=== PATIENT | female | born 1985 | race Hispanic/Latino ===

== ENCOUNTER 2018-12-19 18:45 | Emergency (ER) | payer OTHER ==
[2018-12-19 19:12] LABS: #Basophils 0.1 thou/uL (0.0-0.2); #Eosinphils 0.3 thou/uL (0.0-0.7); #Monocytes 0.6 thou/uL (0.11-0.59); #Neutrophils 6.1 thou/uL (1.40-6.50); %Basophils 0.6 % (0.0-1.0); %Eosinophils 2.9 % (0.0-10.0); %Lymphocytes 29.4 % (21.0-51.0); %Monocytes 6.4 % (0.0-10.0); %Neutrophils 60.8 % (42.0-75.0); Hemoglobin 11.1 g/dL (12.0-16.0); Mean Corpuscular HGB CONC 32.8 g/dL (32.0-36.0); Mean Corpuscular Hemoglobin 29.5 pg (27.0-31.0); Mean Corpuscular Volume 89.7 fL (78.0-98.0); Platelet Count 397 thou/uL (130-400); RBC Distribution Width 12.3 % (11.5-14.5); Red Blood Cell (RBC) Count 3.76 mill/uL (4.20-5.40); White Blood Cell (WBC) Count 10.1 thou/uL (4.8-10.8)
--- NOTE | 2018-12-19 20:10 | ULT ---
Limited obstetrical ultrasound: 12/19/2018 COMPARISON: None HISTORY: female with bleeding TECHNIQUE: Multiplanar grayscale sonographic imaging of the gravid uterus obtained. FINDINGS: Cervical length is approximately 4.9 cm. The placenta is located anteriorly. A single intra uterine gestation is present. heart rate is 150 bpm. presentation is vertex. The umbilical cord insertion, kidneys, stomach, spine, four-chamber heart view, urinary bladder, and imaged brain parenchyma unremarkable. Posterior fossa, nose/lips, and umbilical cord not optimally assessed on this examination. At the left superior placental margin there is a small hypoechoic area measuring approximately 2.4 cm x 0.5 cm x 1.3 cm. This could represent a small marginal hemorrhage or a small placental salas. biometry: BPD 4.4 cm 19 weeks 1 day HC 16.4 cm 19 weeks 1 day Abdominal circumference 15.3 cm 20 weeks 3 days Femur length 3.2 cm 19 weeks 6 days Average age based on ultrasound is 19 weeks 5 days. Estimated date of delivery is 05/10/2019. Estimated weight is 331 g +/- 49 g IMPRESSION: Single live intrauterine gestation as detailed above. Questionable very small hemorrhage at the superior left lateral margin of the placenta as detailed above.
== END 2018-12-19 20:25 | disposition home or self-care (01) ==
LOC: ERS 18:45
DX: O20.9 Hemorrhage in early pregnancy, unspecified (principal); Z3A.18 18 weeks gestation of pregnancy
CPT/HCPCS: 36415; 76815; 85025; 86900; 86901

== ENCOUNTER 2019-05-16 00:28 | Day surgery (SDC) | payer OTHER ==
[2019-05-16 00:56] VITALS: BP 109/62; TEMP 98.7; BMI 36.1
[2019-05-16] MEDS ORDERED: hydrALAZINE 20 MG/ML VIAL SLOW IVP PRN (03:27)
--- NOTE | 2019-05-16 03:30 | PDOC.LDHP ---
Labor and Delivery H&P Chief complaint: contractions HPI: 33 y/o at 40w0d, patient of Dr. Sena, presents with ctx q 5 mins since 10pm. Denies heavy VB, LOF, or decreased FM. ROS neg for HEENT, cv, pulm, gi, gu, neuro, psych, skin, musculoskeletal or constitutional symptoms other than mentioned above. OB History Details: 1 prior term Current complications: none Past Medical History: None Current medications: pre- vitamins Previous surgical history: other (wisdom teeth) Allergies/Adverse Reactions: Allergies Allergy/AdvReac Type Severity Reaction Status Date / Time No Known Allergies Allergy Unverified 05/16/19 00:50 Social history: none - Physical Exam Vital signs reviewed and normal: yes General: NAD, resting Lungs: nonlabored breathing Abdomen: gravid Extremeties: no edema FHT: category 1 (150s, mod variability, + accels, no decels) [place] contractions every: 4-5 mins - Vaginal Exam cm dilated: 3 (unchanged after 2 hours) Effacement: 75% Station: -2 - Assessment 33 y/o at 40w0d with no e/o active labor. status reassuring with reactive NST. - Plan -: D/c home with precautions. Advised to keep all appointments. Scheduled for induction Thursday and appointment Thursday.
== END 2019-05-16 03:30 | disposition home health service (06) ==
LOC: L&D/OP 00:28
PROVIDERS: ATTEND Obstetrics & Gynecology
DX: O47.1 False labor at or after 37 completed weeks of gestation (principal); O48.0 Post-term pregnancy; Z3A.40 40 weeks gestation of pregnancy

== ENCOUNTER 2019-05-16 16:30 | Inpatient (IN) | payer OTHER ==
[~2019-05-16 16:30] MED LIST: Bupivacaine 0.25% HCL 30 ML VIAL ONE
[2019-05-16 16:55] VITALS: BMI 36.1
[2019-05-16] MEDS: Lactated Ringer's 1,000 ML IV SCH ×2 (17:05→18:00)
[2019-05-16] MEDS ORDERED: Ibuprofen 800 MG TAB PO PRN (17:07)
[2019-05-16] MEDS ORDERED: Butorphanol Tartrate 1 MG/ML VIAL SLOW IVP PRN (17:07)
[2019-05-16] MEDS ORDERED: NS / Oxytocin 40 units/1000ml 1,000 ML IV PRN (17:07)
[2019-05-16] MEDS ORDERED: Ondansetron PF 4 MG/2 ML Vial IVP PRN ×2 (17:07→18:48)
[2019-05-16] MEDS ORDERED: Promethazine HCl 25 MG/ML VIAL IM PRN ×2 (17:07→18:48)
[2019-05-16] MEDS ORDERED: HYDROcodone/Acetaminophen 5/325 mg Tablet PO PRN ×2 (17:07)
[2019-05-16] MEDS ORDERED: hydrALAZINE 20 MG/ML VIAL SLOW IVP PRN (17:07)
[2019-05-16] MEDS ORDERED: Lidocaine 1% (PF) 30 ML VIAL SC PRN (17:07)
[2019-05-16] MEDS ORDERED: Fentanyl 4 mcg/Bup 0.1% Cadd 100 ML ONE (17:11)
[2019-05-16 17:26] LABS: Hemoglobin 12.7 g/dL (12.0-16.0); Mean Corpuscular HGB CONC 33.9 g/dL (32.0-36.0); Mean Corpuscular Hemoglobin 28.9 pg (27.0-31.0); Mean Corpuscular Volume 85.2 fL (78.0-98.0); Mean Platelet Volume 6.3 fL (7.4-10.4); Platelet Count 354 thou/uL (130-400); RBC Distribution Width 13.2 % (11.5-14.5); Red Blood Cell (RBC) Count 4.38 mill/uL (4.20-5.40); White Blood Cell (WBC) Count 12.7 thou/uL (4.8-10.8)
--- NOTE | 2019-05-16 17:51 | HP ---
The patient seen at bedside at 17:15 to 17:25. LOCATION: Labor and Delivery in [facility]. This is patient of Dr. Sena. CHIEF COMPLAINT: Increasing contractions, the patient was seen earlier this morning at around midnight and sent home. HISTORY OF PRESENT ILLNESS: In brief, this is a 33-year-old female, who is a G2, P1, at 40 weeks and 1 day here with regular contractions. She denies vaginal bleeding or other issues. She was here about midnight and was sent home. She arrived now with increasing contraction discomfort. REVIEW OF SYSTEMS: Complete review of systems was checked and is otherwise negative unless specified in the HPI. PAST MEDICAL HISTORY: Negative. PAST SURGICAL HISTORY: Gallbladder removal after her 1st . She also had wisdom teeth surgery. ALLERGIES: NONE. PHYSICAL EXAMINATION: VITAL SIGNS: Her blood pressure is 115/70, pulse is in the 80s to 90s, and she is afebrile. Respirations are 16 to 18 and they are not labored. GENERAL: Clinically, she is in no acute distress. ABDOMEN: Soft and nontender, and her estimated weight is about 6-1/2 pounds. Her cervical exam is 6 to 7 cm dilated, about 75% effaced, -1 station. On monitor, heart rate is in the 130s to 140s with currently minimal variability, but this is a suspected sleep cycle as just previous to this minimal variability, there was moderate variability with accelerations. We will continue to follow. Contractions are irregular on the tocodynamometer, but about every 5 to 6 minutes or so. ASSESSMENT: This is a G2, P1, who is GBS negative, at 40 weeks and 1 day (full term), who just entered the active phase of labor. PLAN: 1. Follow the monitor closely. 2. Pitocin if needed. 3. Dr. Sena given report and is aware. 4. No acute needs at this time. Job ID: [id number]
[2019-05-16 18:06] LABS: Syphilis Antibody Nonreactive (Nonreactive); Syphilis Antibody Index 0.12 S/CO (<1.00 Non-Reactive)
[2019-05-16 18:08] LABS: HBSAg Index 0.15 S/CO (0-0.99); HIV (1/2) Antibody/Antigen Non-Reactive (NonReactive); HIV 1/2 INDEX 0.09 S/CO (<1.00); Hep B Surf Ag Non-Reactive S/CO (NonReactive)
[2019-05-16] MEDS ORDERED: diphenhydrAMINE 50 MG/ML VIAL IVP PRN (18:48)
[2019-05-16] MEDS ORDERED: ePHEDrine/0.9% NaCl/PF SYRINGE 50 mg/10 ml SLOW IVP PRN (18:48)
[2019-05-16] MEDS ORDERED: Naloxone HCl 0.4 mg/ml Vial IVP PRN ×2 (18:48)
[2019-05-16] MEDS ORDERED: Acetaminophen 325 MG TAB PO PRN (18:48)
[2019-05-16] MEDS ORDERED: Lactated Ringer's 500 ML IV PRN (18:48)
[2019-05-16] MEDS ORDERED: Fentanyl 4 mcg/Bupivacaine 0.1% Cassette 100 ML EPIDURAL SCH (19:00)
[2019-05-16] MEDS ORDERED: Communication Order-Pharmacy FS SCH (19:00)
[2019-05-16] MEDS: NS w/ Oxytocin 10 units 500 ML ONE ×2 (20:33→23:15)
[2019-05-16] MEDS ORDERED: Misoprostol 200 MCG TAB ONE ×2 (21:46)
--- NOTE | 2019-05-16 22:40 | PDOC.OPDEL ---
OB Operative/Delivery Note Delivery Dr/Surgeon: Nathen Pre-Delivery Diagnosis: active labor Procedure/Post Delivery Dx: spontaneous vaginal delivery Weeks gestation: 40 Anesthesia: epidural - Findings A Sex: female - 1 min: 8 - 5 min: 9 - Additional Findings/Plan Placenta delivered: spontaneous Repaired Obstetrical Laceration: right labial Estimated blood loss: 400ml Post delivery plan: routine recovery
[2019-05-17] MEDS ORDERED: HYDROcodone/Acetaminophen 5/325 mg Tablet PO PRN ×2 (00:08)
[2019-05-17] MEDS ORDERED: Bisacodyl 10 MG SUPP PR PRN (00:08)
[2019-05-17] MEDS ORDERED: Ondansetron PF 4 MG/2 ML Vial IVP PRN (00:08)
[2019-05-17] MEDS ORDERED: Preparation H Ointment 28 GM TUBE PR PRN (00:08)
[2019-05-17] MEDS ORDERED: Promethazine HCl 25 MG/ML VIAL IM PRN (00:08)
[2019-05-17] MEDS ORDERED: NS / Oxytocin 40 units/1000ml 1,000 ML IV SCH (00:08)
[2019-05-17] MEDS ORDERED: diphenhydrAMINE 25 MG CAP PO PRN (00:08)
[2019-05-17] MEDS ORDERED: Benzocaine-Menthol 82.5 ML CAN TOP PRN (00:08)
[2019-05-17] MEDS ORDERED: Milk Of Magnesia 30 ML UDCUP PO PRN (00:08)
[2019-05-17] MEDS ORDERED: hydrALAZINE 20 MG/ML VIAL SLOW IVP PRN (00:08)
[2019-05-17] MEDS: Ibuprofen 800 MG TAB PO SCH ×3 (02:03→18:22)
--- NOTE | 2019-05-17 07:56 | PDOC.PP ---
Post Progress Note Post Day #: 1 Subjective: doing well, some cramping with nursing, good latch PO intake tolerated: yes Flatus: yes Ambulation: yes Vital Signs (12 hours) Temp Pulse Resp BP Pulse Ox 05/17/19 03:55 98.2 F 80 18 96/55 L 05/17/19 02:00 98.0 F 82 18 94/52 L 05/17/19 00:50 98.9 F 83 18 111/58 L 97 Weight Weight 204 lb - Physical Examination General: NAD Respiratory: non-labored breathing Abdominal: no distention Fundus firm & at: below umb Skin: no rash Psychiatric: A&Ox3, normal affect Result Diagrams: 05/16/19 17:17 Additional Labs: Post Labs Blood Type A POSITIVE 05/16/19 17:17 Hep Bs Antigen Non-Reactive S/CO (NonReactive) 05/16/19 17:17 (1) 40 weeks gestation of Code(s): Z3A.40 - 40 WEEKS GESTATION OF Status: Acute (2) Vaginal delivery Code(s): O80 - ENCOUNTER FOR FULL-TERM UNCOMPLICATED DELIVERY Status: Acute - Assessment/Plan PPD1 doing well, baby latching well. Likely DC tomorrow.
[2019-05-17] MEDS ORDERED: Adacel (T-DAP) 0.5 ML SYRINGE IM ONE (09:00)
[2019-05-17] MEDS: Ferrous Sulfate 325 MG TAB PO SCH ×2 (09:19→16:24)
[2019-05-17] MEDS: Prenatal Vitamin 1 TAB PO SCH (09:45)
[2019-05-17] MEDS: Docusate Calcium (SURFAK) 240 MG CAP PO SCH ×2 (09:45→22:43)
[2019-05-18] MEDS: Docusate Calcium (SURFAK) 240 MG CAP PO SCH ×2 (02:08→09:14)
[2019-05-18] MEDS: Ibuprofen 800 MG TAB PO SCH (02:08)
[2019-05-18] MEDS: Ferrous Sulfate 325 MG TAB PO SCH (08:20)
--- NOTE | 2019-05-18 08:38 | PDOC.PP ---
Post Progress Note Post Day #: 2 Subjective: doing well, painful nipple after latch PO intake tolerated: yes Flatus: yes Ambulation: yes Weight Weight 204 lb - Physical Examination General: NAD Respiratory: non-labored breathing Fundus firm & at: below umb Skin: no rash Neurological: no gross focal deficits Psychiatric: A&Ox3, normal affect Result Diagrams: 05/16/19 17:17 Additional Labs: Post Labs Blood Type A POSITIVE 05/16/19 17:17 Hep Bs Antigen Non-Reactive S/CO (NonReactive) 05/16/19 17:17 (1) 40 weeks gestation of Code(s): Z3A.40 - 40 WEEKS GESTATION OF Status: Acute (2) Vaginal delivery Code(s): O80 - ENCOUNTER FOR FULL-TERM UNCOMPLICATED DELIVERY Status: Acute - Assessment/Plan PPD2 doing well, no concerns other than breast feeding/latch. LC ordered. Plan for DC today.
[2019-05-18 08:47] VITALS: BP 104/57; TEMP 97.6
[2019-05-18] MEDS: Prenatal Vitamin 1 TAB PO SCH (09:14)
== END 2019-05-18 13:05 | disposition home or self-care (01) | DRG 807 ==
LOC: L&D/OP 16:30 → L&D 17:08 → 3SW 05-17 01:25
PROVIDERS: ADMIT Obstetrics & Gynecology; ATTEND Obstetrics & Gynecology
PROC: 10E0XZZ Delivery of Products of Conception, External Approach (ICD-10-PCS; principal; 2019-05-16)
PROC: 0UQMXZZ Repair Vulva, External Approach (ICD-10-PCS; 2019-05-16)
DX: O70.0 First degree perineal laceration during delivery (principal); Z37.0 Single live birth; Z3A.40 40 weeks gestation of pregnancy
CPT/HCPCS: 36415; 51702; 85027; 86780; 86850; 86900; 86901; 87340; 87389; 99283; 99285; J2590; S0020

== ENCOUNTER 2023-01-13 10:05 | Outpatient (CLI) | payer BC ==
[~2023-01-13 10:05] MED LIST changes: -Bupivacaine 0.25% HCL 30 ML VIAL ONE; +Magnevist 469MG/ML 20 ML VIAL ONE
== END 2023-01-13 10:06 | disposition home or self-care (01) ==
LOC: MRI 10:05
PROVIDERS: ATTEND Radiology Radiation Oncology
DX: D32.0 Benign neoplasm of cerebral meninges (principal)
CPT/HCPCS: 70553; A9579

== ENCOUNTER 2023-06-02 15:11 | Outpatient (CLI) | payer BC | END 2023-06-02 15:12 | disposition home or self-care (01) | LOC: SCSMRI 15:11 | PROVIDERS: ATTEND Radiology Radiation Oncology | DX: D32.0 Benign neoplasm of cerebral meninges (principal) | CPT/HCPCS: 70553 ==

== ENCOUNTER 2024-04-01 13:00 | Outpatient (CLI) | payer BC ==
[2024-04-01] MEDS ORDERED: Magnevist 469MG/ML 20 ML VIAL ONE (15:34)
== END 2024-04-01 13:01 | disposition home or self-care (01) ==
LOC: MRI 13:00
PROVIDERS: ATTEND Radiology Radiation Oncology
DX: D32.0 Benign neoplasm of cerebral meninges (principal); G93.6 Cerebral edema
CPT/HCPCS: 70553; 76376

== ENCOUNTER 2025-04-12 13:56 | Outpatient (CLI) | payer BC | END 2025-04-12 13:57 | disposition home or self-care (01) | LOC: SCSMRI 13:56 | PROVIDERS: ATTEND Radiology Radiation Oncology | DX: D32.0 Benign neoplasm of cerebral meninges (principal); G93.6 Cerebral edema | CPT/HCPCS: 70553; 76376 ==